=== PATIENT | male | born 1985 | race Caucasian/White ===

== ENCOUNTER 2018-05-19 07:53 | Inpatient (IN) | END 2018-05-23 13:45 | disposition home or self-care (01) | DRG 419 ==

== ENCOUNTER 2019-03-21 22:38 | Emergency (ER) | payer OTHER ==
[~2019-03-21] VITALS: Ht 172.7 cm; Wt 75.9 kg
[~2019-03-21 22:38] MED LIST: ALBU8.5H8 INH; OXYC-438 PO
[2019-03-21 22:47] VITALS: Ht 172.7 cm; Wt 75.9 kg
[2019-03-22] MEDS ORDERED: DIPHTH/TET/ACEL PERTUSS (ADULT) 0.5 ML VIAL IM* ONE
[2019-03-22] MEDS ORDERED: LIDOCAINE 2% (MDV) 20 ML INJ INJ ONE
[2019-03-22] MEDS ORDERED: CEFTRIAXONE 1 GM INJ IM ONE
[2019-03-22] MEDS ORDERED: SULF1TAB31 PO (02:34)
[2019-03-22] MEDS ORDERED: NAPR-985 PO (02:34)
[2019-03-22] MEDS ORDERED: CEPH-443 PO (02:34)
[2019-03-22 02:49] VITALS: BP 127/61; PULSE 69; RESP 16
--- NOTE | 2019-03-24 14:28 | ERD ---
ER Documentation Chief Complaint Chief Complaint left foot pain/swelling x 1 week. denies trauma. on atb HPI 33yo M presents for evaluation of left foot pain and swelling x 1 week. Pt denie s trauma, but believes he may have stepped on a nail as he often walks barefoot but is not certain. He states to have presented to a different emergency room 1 week ago and was given IV abx and doxycycline which he is almost finished with. He notes significant improvement in swelling but states the pain has persisted. He rates his current pain as a 6/10 and is not currently taking any pain medicine to alleviate his symptoms. He denies fevers, chills, sweats, SOB. Denies numbness or tingling of the bilat LE. ROS All systems reviewed and are negative except as per history of present illness. Medications Home Meds Active Scripts Naproxen* (Naprosyn*) 500 Mg Tablet, 500 MG PO BID PRN for PAIN AND/OR INFLAMMA TION, #30 TAB Prov:MICHAEL APARICIO PA-C 03/22/19 Cephalexin* (Keflex*) 500 Mg Capsule, 500 MG PO QID for 10 Days, #40 CAP Prov:MICHAEL APARICIO PA-C 03/22/19 Sulfamethoxazole/Trimethoprim* (Bactrim Ds* Tablet) 1 Each Tablet, 1 TAB PO BID for 10 Days, #20 TAB Prov:MICHAEL APARICIO PA-C 03/22/19 Oxycodone HCl/Acetaminophen (Oxycodone-Acetaminophen 5-325) 1 Each Tablet, 1 TAB PO Q4H PRN for PAIN LEVEL 4-6 for 5 Days, #15 TAB Prov:MONTANA RAMIREZ MD 05/23/18 Albuterol Sulfate* (Proair HFA*) 8.5 Gm Hfa.aer.ad, 2 PUFF INH Q4H PRN for WHEEZING AND SOB for 60 Days, #1 INHALER 6 Refills Prov:MONTANA RAMIREZ MD 05/22/18 Allergies Allergies: Coded Allergies: No Known Allergy (Unverified , 05/19/18) PMhx/Soc History of Surgery: Yes (GALLBLADDER REMOVAL ) Anesthesia Reaction: No Hx Respiratory Disorders: Yes (bronchitis) Hx Cardiac Disorders: No Hx Psychiatric Problems: No Hx Alcohol Use: Yes (ocassional) Hx Substance Use: No Hx Tobacco Use: Yes Smoking Status: Current every day smoker Physical Exam Vitals Vital Signs Date Temp Pulse Resp B/P (MAP) Pulse Ox O2 O2 Flow FiO2 Time Delivery Rate 03/22/19 97.8 69 16 127/61 99 Room Air 02:49 (83) 03/21/19 98.2 86 18 118/66 98 22:47 (83) Physical Exam GEN: Alert and coherent. Well appearing, non-toxic. No acute distress. NECK: Supple. Full range of motion. Trachea midline. No lymphadenopathy. RESP: No tachypnea. Clear to auscultation bilaterally. No wheezing, rales or rhonchi. No accessory muscle use. CV: Regular rate and rhythm. No murmurs, rubs, or gallops. BACK: Full ROM. No CVA tenderness. Lower Extremity bilateral: Skin: No laceration, or evidence of external trauma. Dorsal surface of left foot warm to touch and erythematous. Multiple round crusted lesions to the plantar surface of the left foot. Compartments: Soft Motor: Full active range of motion hip/knee/ankle/foot Sensation: Intact to light touch FDWS/dorsal lateral toes/MF/LF/Plantar/calcaneal surface Bones: Nontender knee/proximal tibia/ malleoli. TTP of the left dorsal foot Joints: No effusion or laxity Pulses/Perfusion: 2+ DP, Capillary refill < 2 seconds Nailbeds: Intact without significant subungal hematoma SKIN: Warm and dry. No obvious rashes, erythema, or petechiae. NEURO: Alert and oriented x3. Appropriate speech, mood and affect. Face is symmetric. Speech is normal. CN II-XII intact. Moves all extremities equally. Ambulates with a strong, steady gait. Results 24 hrs Current Medications Medications Dose Sig/Fortino Start Time Status Last (Trade) Ordered Route PRN Stop Time Admin Dose Reason Admin Diphtheria/ 0.5 ml ONCE ONCE 03/22/19 DC 03/22/19 Tetanus/Acell IM* 00:00 00:15 Pertussis 03/22/19 00:04 (Adacel) Ceftriaxone 1 gm ONCE ONCE 03/22/19 DC 03/22/19 Sodium IM 00:00 00:14 (Rocephin) 03/22/19 00:04 Lidocaine 20 ml ONCE ONCE 03/22/19 DC 03/22/19 (Xylocaine INJ 00:00 00:15 2% (Mdv) 20 03/22/ 00:04 ml) Procedures/MDM PROCEDURE: Left foot. FINDINGS: There is no fracture, dislocation or bone destruction. The joint spaces are within normal limits. Bone mineralization is within normal limits. There is no radiopaque foreign body or abnormal calcification. IMPRESSION: No evidence of fracture. MDM: This is a 33yo M who presents with Left foot pain and swelling x 1 week. XR imaging performed and negative for fracture. Physical exam findings suspicious for cellulitis. Pt received IM Rocephin while in ED and updated Tetanus d/t suspicion for stepping on a nail. At this time I have very low suspicion for sepsis given pt afebrile, not tachycardic, NAD and improvement in swelling. I also have low suspicion for compartment syndrome as pulse is 2+, pain is improving, extremity is not pale, and warmth is localized. Pt is stable for discharge home at this time with prescription for bactrim and keflex as well as Naproxen for pain and inflammation. Pt also counseled regarding RICE and advised to stay off foot if possible for next few days. Also counseled regarding foot hygiene and advised to discontinue practice of walking barefoot. Pt is to return to ED immediately if begins to develop fevers, chills, worsening pain or swelling, SOB, or other concerning symptoms. Strict follow-up with PCP in next 1-2 days also recommended. Pt expressed verbal understanding and agreement to treatment plan. All questions addressed and answered. Departure Diagnosis: Primary Impression: Cellulitis Site of cellulitis: extremity Site of cellulitis of extremity: lower extremity Laterality: left Qualified Codes: L03.116 - Cellulitis of left lower limb Additional Impression: Foot pain, left Condition: Stable Patient Instructions: Cellulitis MICHAEL APARICIO PA-C Mar 24, 2019 14:23
== END 2019-03-22 02:49 | disposition home or self-care (01) ==
LOC: FTE 22:38
DX: L03.116 Cellulitis of left lower limb (principal); F17.210 Nicotine dependence, cigarettes, uncomplicated; Z23 Encounter for immunization
CPT/HCPCS: 73630; 90471; 90715; 96372; J0696; Z7502; Z7610